=== PATIENT | male | born 1985 | race Caucasian/White ===

== ENCOUNTER 2024-03-18 06:17 | Day surgery (SDC) | payer OTHER, SELFPAY | END 2024-03-18 09:29 | disposition home or self-care (01) | LOC: GI 06:17 | PROVIDERS: ATTENDING PHYSICIAN Internal Medicine Gastroenterology | PROC: 0DJD8ZZ Inspection of Lower Intestinal Tract, Via Natural or Artificial Opening Endoscopic (ICD-10-PCS; 2024-03-18) | DX: Z12.11 Encounter for screening for malignant neoplasm of colon (principal); Z86.0100 Personal history of colon polyps, unspecified; K64.8 Other hemorrhoids | CPT/HCPCS: G0105 ==

== ENCOUNTER 2024-07-27 15:59 | Emergency (ER) | payer OTHER, SELFPAY ==
[2024-07-27 16:01] VITALS: BP 155/93; BMI 26.8
[2024-07-27] MEDS: HyperRAB 2000 UNIT IM (18:04)
[2024-07-27] MEDS: RABAVERT RABIES VACC W-DILUENT 2.5 UNIT IM (18:05)
[2024-07-27 18:15] VITALS: BP 150/94
--- NOTE | 2024-07-27 22:28 | ED.GENMED ---
History of Present Illness
General
Chief Complaint: Rabies
Source: patient
Exam Limitations: none
Time Seen by Provider: 07/27/24 17:12
Nursing documentation reviewed up to this point in time: agreed with
History of Present Illness
History of Present Illness:
Patient to ED for possible rabies exposure. States last PM and bat flew onto his head. Unsure if he was bit. Brought self to ED for eval.
Past History
Past History
ED Past Medical History: None
ED Past Surgical History: None
Review of Systems
Review of Systems
Allergies reviewed?: Yes
All Other Systems: ROS reviewed and negative except as documented in HPI and ROS
Constitutional: Reports no symptoms
EENT: Reports no symptoms
Respiratory: Reports no symptoms
Cardiac: Reports no symptoms
ABD/GI: Reports no symptoms
: Reports no symptoms
Musculoskeletal: Reports no symptoms
Skin: Reports no symptoms
Neurological: Reports no symptoms
Psychiatric: Reports no symptoms
Phy Exam
General Physical Exam
General Presentation: well appearing and no apparent distress
General age: appears stated age
General Skin: warm and dry
General Habitus: normal
Musculoskeletal Exam
Musculoskeletal Exam: full ROM and neuro vasc intact
Skin Exam
Skin Exam: normal color, warm/dry and no rash
Psychiatric Exam
Psychiatric Exam: normal mood/affect
Course
Orders/Labs/Results
Orders:
Orders
07/27/24 17:31
Rabies Immune Globulin/Pf [HyperRAB] 2,000 unit IM NOW STA
Rabies Vaccine (Pcec)/Pf [Rabavert Rabies Vacc W-Diluent] 2.5 unit IM .ONCE ONE
Vital Signs
Initial and Last Documented VS:
Initial Vital Signs
Temp Pulse Resp BP Pulse Ox
97.6 F 83 16 155/93 100
07/27/24 16:01 07/27/24 16:01 07/27/24 16:01 07/27/24 16:01 07/27/24 16:01
Last Documented Vital Signs
Temp Pulse Resp BP Pulse Ox
97.6 F 72 16 150/94 99
07/27/24 16:01 07/27/24 18:15 07/27/24 18:15 07/27/24 18:15 07/27/24 22:29
*Pulse Oximetry
SaO2: 99
Oxygen Mode of Delivery: Room air
*Critical Care Note
Total Time (30-74mins, 75-104mins- exclusive of procedures): Not Applicable
Update Note
Update Note:
Patient to ED after bat landed on his head 2 nights ago. Unsure if he was bitten. No wounds identified on scalp. Unable to r/o completely that he was not bitten and that the bat involved is free from rabies. Will initiate rabies vaccine in ED, he
will complete series throught the infusion center. He was given instructions on s/s to return to ED and he is agreeable to plan.
ED Attending Note
-
Portions of this chart may have been created with voice recognition software.� Occasional wrong word or��sound alike� substitutions may have occurred due to the inherent limitations of voice recognition software.
Discharge Plan
Departure
Patient Disposition: Home (Routine Discharge)
Date of Disposition: 07/27/24
Time of Disposition: 17:32
Patient with high blood pressure during this ER visit?: No
Condition: Good
Covid-19: Not Applicable
Discharge Problem:
Exposure to bat without known bite
Instructions: Rabies Vaccine
Prescriptions:
New
RabAvert (PF) 2.5 unit Suspension For Reconstitution
1 ml IM . DIRECTED Qty: 3 0RF
Rx Instructions:
See Rabies Vaccine Post Exposure Prophylaxis Instruction Sheet for Dosing Instructions
Stand Alone Forms: Rabies Vaccine Post Exp Dosing
Interventions
Interventions:
*Risk Screen - Suicide Last Done: 07/27/24 16:00
*General Assessment Last Done: 07/27/24 16:00
*Neglect/Abuse Screening Last Done: 07/27/24 16:00
*ED- Fall Risk Assessment Last Done: 07/27/24 17:22
*ED COVID-19 Vaccine History Last Done: 07/27/24 17:22
*Nursing Disposition Last Done: 07/27/24 18:17
Discharge Date and Time
Discharge Date/Time: 07/27/24 18:18
Print Language: SAL[place]
== END 2024-07-27 18:18 | disposition home or self-care (01) ==
LOC: EMR 15:59
PROVIDERS: EMERGENCY PHYSICIAN Emergency Medicine; FAMILY PHYSICIAN Student in an Organized Health Care Education/Training Program
DX: Z23 Encounter for immunization (principal); Z20.3 Contact with and (suspected) exposure to rabies; W55.82XA Struck by other mammals, initial encounter
CPT/HCPCS: 99284; 96372; 90471; 90375; 90675

== ENCOUNTER 2024-08-04 07:43 | Outpatient (RCR) | payer OTHER, SELFPAY ==
[2024-07-30 15:16] VITALS: BP 145/61
[2024-07-30] MEDS: RABAVERT RABIES VACC W-DILUENT 2.5 UNIT IM (15:25)
[2024-08-04 07:59] VITALS: BP 140/85
[2024-08-04] MEDS: RABAVERT RABIES VACC W-DILUENT 2.5 UNIT IM (08:07)
== END 2024-08-04 13:15 | disposition home or self-care (01) ==
LOC: OID 07:43
PROVIDERS: ATTENDING PHYSICIAN Emergency Medicine
DX: Z20.3 Contact with and (suspected) exposure to rabies (principal); Z23 Encounter for immunization
CPT/HCPCS: 90471; 90675

== ENCOUNTER 2024-08-11 08:29 | Outpatient (RCR) | payer OTHER, SELFPAY ==
[2024-08-11 08:34] VITALS: BP 139/84
[2024-08-11] MEDS: RABAVERT RABIES VACC W-DILUENT 2.5 UNIT IM (08:41)
== END 2024-08-12 10:42 | disposition home or self-care (01) ==
LOC: OID 08:29
PROVIDERS: ATTENDING PHYSICIAN Emergency Medicine
DX: Z20.3 Contact with and (suspected) exposure to rabies (principal); Z23 Encounter for immunization
CPT/HCPCS: 90471; 90675